=== PATIENT | female | born 1965 | race Caucasian/White ===

== ENCOUNTER 2016-11-07 07:54 | Day surgery (SDC) | payer BC ==
[~2016-11-07] VITALS: Ht 157.5 cm; Wt 77.7 kg
[2016-11-07 08:21] VITALS: Ht 157.5 cm; Wt 77.7 kg
[2016-11-07] MEDS ORDERED: PIOG30TA26 PO (08:31)
[2016-11-07] MEDS ORDERED: VIT D (08:31)
[2016-11-07] MEDS ORDERED: FENO145T19 PO (08:31)
[2016-11-07] MEDS ORDERED: METF500T4 PO (08:31)
[2016-11-07 08:36] VITALS: BP 156/76; PULSE 69; RESP 18
[2016-11-07] MEDS ORDERED: MIDAZOLAM 1 MG/ML 2 ML INJ ONE ×2 (09:31)
[2016-11-07] MEDS ORDERED: FENTAnyl 50 MCG/ML VIAL ONE (09:31)
[2016-11-07 09:50] VITALS: BP 116/68; PULSE 60; RESP 18
--- NOTE | 2016-11-07 15:38 | GILP ---
DATE OF PROCEDURE: PROCEDURE PERFORMED: Colonoscopy with polypectomy and biopsy. INDICATION: A 51-year-old female undergoing this procedure for colon cancer screening. She has a s alton family history of colon cancer. INFORMED CONSENT: The risk of the procedure, related and unrelated complications, anesthetic risks all the sedative risks, alternatives discussed and informed consent was obtained. DESCRIPTION OF PROCEDURE: The patient was brought to the GI lab, sedated with Versed 4 mg, fentanyl 75 mg. After optimal sedation, pediatric colonoscope passed with much ease into rectum, advanced t hrough sigmoid, descending, transverse colon, all the way into cecum. Appendiceal orifice identifie d. Cecum was 5% to 10% filled with stool, but the rest of the colon was normal. Clarity and cleanl iness was good. There was opaque liquid at different angulations, but grossly it was normal. There was a polyp near the hepatic flexure in the ascending colon, flat, 1 cm in diameter, successfully r emoved by cold snare polypectomy. I do not know whether we retrieved the polyp or not. There was a nother polyp in the neighborhood. This was diminutive, successfully remove by jumbo biopsy forceps. The rest of the colon was normal. Retroversion was normal. Scope was straightened out, external hemorrhoids identified. IMPRESSION: 1. Small external hemorrhoid. 2. Two polyps successfully removed, one was 1 cm in diameter in the ascending colon by cold snare a nd another diminutive polyp near the hepatic flexure by jumbo biopsy forceps. 3. Normal otherwise all the way into the cecum. 4. Normal retroversion. 5. Clarity was good and cleanliness was good to adequate. PLAN: Review histopathology of the polyp. The patient definitely needs a colonoscopy in the next 5 years. Dictated By: BRANDIE VILLANUEVA/AMI Conf#: [id number] DID#: [id number]
== END 2016-11-07 11:31 | disposition home or self-care (01) ==
LOC: GIL 07:54
PROVIDERS: ATTEND Internal Medicine Gastroenterology
DX: Z12.11 Encounter for screening for malignant neoplasm of colon (principal); K64.8 Other hemorrhoids; K63.5 Polyp of colon; E11.9 Type 2 diabetes mellitus without complications; Z80.0 Family history of malignant neoplasm of digestive organs
CPT/HCPCS: 45380; 82962; 88305; J2250; J3010; Z7610